=== PATIENT | male | born 1950 | race Caucasian/White ===

== ENCOUNTER 2016-04-16 18:42 | Inpatient (IN) | payer MEDICARE ==
[~2016-04-16] VITALS: Ht 179.1 cm; Wt 79.0 kg
[~2016-04-16 18:42] MED LIST: ALEV220C2 PO; ASPI325T PO; GLUC1CAP9 PO; PRAV40TA PO; TYLE325T5 PO; [UNRECOGNIZED DRUG - CODE] PO
[2016-04-16 19:52] LABS: BASO % 0.5 % (0.0-1.0); EOS # 0.2 K/mm3 (0.0-0.50); EOS % 4.2 % (0.0-3.0); LARGE UNSTAINED CELL # 0.2 K/mm3 (0.0-0.4); LARGE UNSTAINED CELL % 2.9 % (0.0-4.0); LYMPH % 16.1 % (24.0-44.0); MEAN CORPUSCULAR HEMOGLOBIN 32.2 pg (27.0-33.0); MEAN CORPUSCULAR HGB CONC 34.2 g/dl (32.0-36.5); MEAN CORPUSCULAR VOLUME 94.2 fl (80.0-96.0); MONO # 0.4 K/mm3 (0.0-0.8); MONO % 6.5 % (0.0-5.0); NEUTROPHILS # 4.1 K/mm3 (1.8-7.7); NEUTROPHILS % 69.9 % (36.0-66.0); PLATELET COUNT, AUTOMATED 159 k/mm3 (150-450); RED CELL DISTRIBUTION WIDTH 11.8 % (11.5-14.5); WHITE BLOOD COUNT 5.9 K/mm3 (4.0-10.0)
[2016-04-16 20:08] LABS: ALBUMIN 4.2 GM/DL (3.2-5.2); ALKALINE PHOSPHATASE 81 U/L (45-117); ANION GAP 11 MEQ/L (8-16); AST/SGOT 37 U/L (15-37); BILIRUBIN,DIRECT 0.2 MG/DL (0.0-0.2); BILIRUBIN,TOTAL 0.6 MG/DL (0.2-1.0); CALCIUM LEVEL 8.8 MG/DL (8.8-10.2); CARBON DIOXIDE LEVEL 24 MEQ/L (21-32); CHLORIDE LEVEL 108 MEQ/L (98-107); CREATININE FOR GFR 0.98 MG/DL (0.70-1.30); GLOMERULAR FILTRATION RATE > 60.0 (>49); GLUCOSE, FASTING 92 MG/DL (80-110); POTASSIUM SERUM 3.9 MEQ/L (3.5-5.1); SODIUM LEVEL 143 MEQ/L (136-145); TOTAL PROTEIN 7.2 GM/DL (6.4-8.2)
[2016-04-16 20:17] LABS: VENOUS BASE EXCESS 0.5 (-2.0-2.0); VENOUS O2 SATURATION 98.4 % (60.0-80.0); VENOUS PARTIAL PRESSURE CO2 35.6 mmHg (38.0-50.0); VENOUS PARTIAL PRESSURE O2 109.1 mmHg (30.0-50.0); VENOUS TOTAL CO2 25.2 MEQ/L (24.0-28.0)
[2016-04-16 20:20] LABS: ALT/SGPT 38 U/L (12-78); BLOOD UREA NITROGEN 31 MG/DL (7-18)
--- NOTE | 2016-04-16 21:30 | REPUSA ---
CLINICAL HISTORY: AMS TECHNIQUE: Multiple axial CT images were obtained through the brain without IV contrast material. COMMENTS: There is normal configuration of sella turcica. There are no intra or extra-axial collections. There is no mass effect or midline shift. There is no evidence of hematoma formation. No hydrocephalus is p resent. The ventricles are symmetrical. No abnormal calcifications are present. Left cerebellar hypodensity is noted compatible with an old infarct. There is diffuse age-appropriate cerebellar and cerebral atrophy with proportionally dilated ventricl es and cortical sulci. There are bilateral periventricular and subcortical white matter hypolucencies compatible with mild c hronic microvascular disease. Otherwise, no significant focal abnormalities are seen either in the posterior fossa or supratentoria l compartment. IMPRESSION: 1. Age-appropriate cerebellar and cerebral atrophy. 2. Mild chronic microvascular disease. 3. Left cerebellar hypodensity is noted compatible with an old infarct. 4. No evidence of acute intracranial pathology. Thank you for your kind referral of this patient.
[2016-04-17 00:09] LABS: METHADONE URINE NEGATIVE (NEGATIVE)
--- NOTE | 2016-04-17 02:30 | REPUSA ---
CLINICAL HISTORY: Amnesia. TECHNIQUE: Three dimensional [id number] angiography is performed of the [place]. The eulogio dy was performed without IV contrast agent. FINDINGS: The supraclinoid portions of the internal carotid arteries are of normal shape. The normal bifurcation is seen. The middle cerebral arteries are unremarkable in appearance. The posterior circu lation is visualized and shows no evidence of occlusion or aneurysm formation. The basilar tip is see n and shows no aneurysm formation. There is no evidence of beading to suggest vasculitis. IMPRESSION: MRA of the [place] is within normal limits. Thank you for your kind referral of this patient.
--- NOTE | 2016-04-17 02:30 | REPUSA ---
CLINICAL HISTORY: Confusion. Amnesia. TECHNIQUE: MRI of the brain was performed without administration of intravenous contrast material. T1 spine echo, T2 fast spin echo and FLAIR sequences were obtained in sagittal, axial and coronal plane s. FINDINGS: 3.2 cm left cerebellar chronic encephalomalacia. The sella and parasellar regions are unremarkable in appearance. The corpus callosum and cerebellar t onsils are of normal configuration and position. There are no intra or extra-axial collections. There is no mass effect or midline shift. There is no evidence of hematoma formation. There is no hydrocep halus. The brain stem shows no mass effects, infarcts or hemorrhage. There are no cerebellopontine tumors. T he acoustic nerves are symmetrical. No cerebellar intra-axial pathology delineated. The fourth ventri charlie and aqueduct are normal. No abnormalities of the optic nerves are identified. No dural or subdura l masses or collections are detected. The visualized arterial structures demonstrate normal appearing flow voids. The VII and VIII nerve bu ndles are visualized and are unremarkable in appearance. There are no suspicious signal abnormalities within the infra or supratentorial space. IMPRESSION: Left cerebellar chronic encephalomalacia. No acute intracranial pathology. Thank you for your kind referral of this patient.
[2016-04-17] MEDS ORDERED: NS 1,000 ML IV SCH (03:10)
[2016-04-17 04:15] VITALS: BP 105/64
--- NOTE | 2016-04-17 04:27 | HPE ---
DATE OF ADMISSION: 04/17/2016 PRIMARY CARE PROVIDER: Ira Graham PA-C. CHIEF COMPLAINT: Amnesia. 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 Apparently in the afternoon he got confused and he was told that he began asking the same questions over and over again. He actually drove his young coworker home, paid him and came to his house and was confused and at which point it was advised he present to the emergency room. At the present time, the patient himself does not remember anything other than sharpening the fence posts. He does not remember the events of the afternoon. He is fully awake, alert and oriented times three at the present time and remembers the earlier part of his emergency room stay. He denies any history of seizures, any seizure-like activity. No other episodes of loss of consciousness or memory lapses or loss of time in the past. No illicit substance abuse. He admits that he was working quite vigorously this morning and he has not been working vigorously lately as he has been caring for his , who is quite ill with dementia. He tells me that she was in [facility] and he was staying in a hotel there for the last several weeks and only came back home a few days ago and he has not slept much in the last month. PAST MEDICAL HISTORY: 1. CVA. 2. Obstructive sleep apnea. ALLERGIES: Patient has no known drug allergies. HOME MEDICATIONS: - aspirin 325 mg daily - pravastatin 40 mg daily PAST SURGICAL HISTORY: Ureteral stent placement. 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 No illicit substance abuse, alcohol or tobacco abuse. FAMILY HISTORY: Noncontributory. REVIEW OF SYSTEMS: Negative other than history of present illness (HPI). PHYSICAL EXAMINATION: VITAL SIGNS: Temperature 86, pulse 72, respiratory rate 18, blood pressure 115/67, oxygen saturation 93% on room air. GENERAL: He is a very pleasant, elderly, fit man sitting on the edge of the stretcher. He does not appear to be in any acute distress. HEENT: Cranial nerves II-XII are grossly intact. He has moist mucous membranes. No elevation of central venous pressure (CVP). CARDIOVASCULAR EXAMINATION: S1, S2, regular. RESPIRATORY EXAMINATION: Clear. ABDOMINAL EXAMINATION: Benign. EXTREMITIES: No clubbing, cyanosis or edema. He has 5/5 strength in all four extremities. NEUROLOGICAL EXAMINATION: Nonfocal. LABORATORY STUDIES: WBC 5.9, hemoglobin 14.1, hematocrit 41.3, platelet count 159. Chemistry panel: Sodium 143, potassium 3.9, chloride 108, bicarbonate 24, BUN 31, creatinine 0.9. CK is elevated at 948. Troponin is negative. TSH within normal limits. Lactic acid was within normal limits as were liver function tests. Toxicology is negative. Urinalysis is essentially unremarkable. IMAGING: The patient had MRI of the brain that reveals old cerebellar findings, no acute findings. An MRA, which is essentially unremarkable. A CT scan of the head, which reveals left cerebellar hypodensity compatible with infarct, no acute infarct. Chest x-ray, for which there is no report available at this time. ASSESSMENT AND PLAN: This is a 66-year-old man with transient global amnesia. 1. Transient global amnesia, nearly classic, loss of time, lessening of power, associated with strenuous activity, life stressors. At the present time, it does appear to be resolving. Will admit him to the medical/surgical floor with neurological checks every 4 hours and close monitoring. Will order him for an electroencephalogram (EEG). Could consider neurology consultation. At the present time, he has no meningeal signs, no concerning signs for encephalitis or seizure-like activity. Reassurance has been offered. 2. History of CVA. The patient is on aspirin and pravastatin. 3. Elevated CK and elevated BUN. The patient is mildly dehydrated likely related to strenuous activity and his poor sleep and life stressors. We will gently hydrate him and trend his CK in the morning. 4. Obstructive sleep apnea. The patient is noncompliant with continuous positive airway pressure (CPAP). 5. Deep venous thrombosis (DVT) prophylaxis. The patient will be on Lovenox. DISPOSITION: The patient is admitted to the medical/surgical floor to Dr. Cade's service who will continue following the patient at 7 a.m.
[2016-04-17 06:00] VITALS: BP 115/65
--- NOTE | 2016-04-17 08:11 | REP ---
REASON: Altered mental status. COMPARISON: 03/01/2012 FINDINGS: The technique utilized in obtaining the radiograph has magnified the cardiac silhouette and accentuated the interstitial markings. The superior mediastinal structures are midline. The cardiac silhouette is unremarkable in size, shape, and position. The diaphragmatic surfaces of the lungs are regular, and the costophrenic angles are clear. The pulmonary espinal are clear. The imaged osseous structures are intact. IMPRESSION: There is no acute cardiopulmonary disease. No significant change from the prior exam other than technique. Calcified hilar lymph nodes are again seen on the right, status quo. Signed by Manuel Weaver DO 04/17/2016 10:04 A
--- NOTE | 2016-04-17 09:09 | ECGEPIP ---
Stationary ECG Study [facility] - ED Test Date: 2016-04-16 Pat Name: TREY OWEN Department: Room: [place] [address] Gender: M Academic Counselor: [email or web address] : 1950 Requested By: ALICIA Childs Order Number: [id number] Reading MD: Bre Conway Measurements Intervals Sharon Rate: 58 P: 54 VT: 173 QRS: -19 QRSD: 100 T: -2 QT: 401 QTc: 394 Interpretive Statements SINUS BRADYCARDIA MINIMAL VOLTAGE CRITERIA FOR LVH, CONSIDER NORMAL VARIANT INFERIOR MYOCARDIAL INFARCTION, PROBABLY OLD LESS ECTOPY COMPARED 08/15/14 Electronically Signed On 04-17-2016 9:08:42 EST by Bre Conway
[2016-04-17] MEDS: ENOXAPARIN 40 MG/0.4 ML SYRINGE (J1650) SC SCH (09:23)
[2016-04-17] MEDS: PRAVASTATIN 20 MG TAB PO SCH (09:23)
[2016-04-17] MEDS: ASPIRIN 325 MG TAB PO SCH (09:23)
[2016-04-17 12:14] LABS: MEAN CORPUSCULAR HEMOGLOBIN 32.9 pg (27.0-33.0); MEAN CORPUSCULAR HGB CONC 34.4 g/dl (32.0-36.5); MEAN CORPUSCULAR VOLUME 95.5 fl (80.0-96.0); WHITE BLOOD COUNT 3.8 K/mm3 (4.0-10.0)
[2016-04-17 12:35] LABS: ANION GAP 9 MEQ/L (8-16); BLOOD UREA NITROGEN 24 MG/DL (7-18); CALCIUM LEVEL 8.1 MG/DL (8.8-10.2); CARBON DIOXIDE LEVEL 27 MEQ/L (21-32); CHLORIDE LEVEL 110 MEQ/L (98-107); CREATININE FOR GFR 0.84 MG/DL (0.70-1.30); GLOMERULAR FILTRATION RATE > 60.0 (>49); GLUCOSE, FASTING 116 MG/DL (80-110); POTASSIUM SERUM 4.1 MEQ/L (3.5-5.1); SODIUM LEVEL 146 MEQ/L (136-145)
[2016-04-17 14:00] VITALS: BP 129/67
[2016-04-17 22:00] VITALS: BP 120/74
[2016-04-18 06:00] VITALS: BP 139/82
--- NOTE | 2016-04-18 09:46 | REP ---
REASON: Carotid arterial disease. COMPARISON: 08/15/2014 which showed bilateral 1 to 15% stenosis. Today's examination again shows mild to moderate echogenic material along the carotid arterial nash in a fashion unchanged from the prior exam. Analysis of the spectral waveforms shows no evidence of significant spectral broadening. RIGHT LEFT CCA systolic 92.9 cm/s 96.1 cm/s CCA diastolic 23.7 cm/s 20.4 cm/s ICA systolic 83.4 cm/s 61.9 cm/s ICA diastolic 31.5 cm/s 21.6 cm/s ICA/CCA ratio 0.9 0.64 Antegrade flow is seen at both vertebral arteries. IMPRESSION: According to the NASCET consensus criteria, there is no evidence of a flow significant stenosis. There does not appear to be a significant change compared to the prior examination. Signed by Manuel Weaver DO 04/18/2016 10:28 A
[2016-04-18] MEDS: PRAVASTATIN 20 MG TAB PO SCH (10:27)
[2016-04-18] MEDS: ASPIRIN 325 MG TAB PO SCH (10:27)
[2016-04-18] MEDS: ENOXAPARIN 40 MG/0.4 ML SYRINGE (J1650) SC SCH (10:28)
--- NOTE | 2016-04-18 13:27 | IPN ---
DATE: 04/17/2016 SUBJECTIVE: The patient feels well at this time. 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 It does seem to represent a new observation on his part that he is a little bit weak. He denies nausea, headache, tremulousness, change in appetite. He has been eating and drinking overnight well. He has been receiving IV fluids at just above minimal hydration support, but he seems to be eating and drinking well enough that he no longer requires this IV support. The patient feels well and he notes no residual problems other than the left hand weakness, senior automation engineer weakness, which he thinks is a new problem. He denies headache, nausea, tremor, or any other active new symptom other than awareness that his left hand is a little weak. He also believes that his left eye is a little puffy under the left eye. He does have a history of a fractured orbit many years ago, which could be a cause for some asymmetry, but he and his [id number], who is with him today, are confident that the puffiness under his left eye is news, but he denies any eye irritability symptoms or foreign body sensation or light sensitivity and the area is not tender to touch. PHYSICAL EXAMINATION: He is alert, pleasant, cooperative, oriented. He has 4/5 strength in the left senior automation engineer. His biceps power and triceps power seem to be normal, comparable to the opposite side. Facial asymmetry is not noted. Tongue movements are normal and his speech is clear. Lower extremity strength is normal and he is able to demonstrate functionally normal Romberg at the bedside today. Patient is alert and pleasant and able to move all extremities well. His left senior automation engineer is indeed weak, approximately 4/5 strength. Focal weakness demonstrated. Facial movements are normal. He is able to demonstrate stable Romberg. Lower extremity strength is normal. He has had no evidence of repeat symptoms. Vital signs this morning: Blood pressure 115/65, pulse 70, respiratory rate 20, temperature 95.6, oxygen saturation overnight has varied from 89-92 on room air. MRA showed old cerebellar injury, encephalomalacia. MRI of the brain showed previous evidence of cerebellar injury, 3.2 cm area of left cerebellar encephalomalacia, nothing demonstrated abnormal in the higher structures. The patient does have a field cut involving the left temporal field. This apparently is old since a previous stroke for which he had seen Dr. Salas. He continues on his usual medications, which include pravastatin and aspirin. ASSESSMENT: 1. Transient global amnesia. Differential includes possible seizure activity, new stroke less likely. Note that his CK was elevated at 948 and this will be rechecked. PLAN: We will continue current medications. We will discontinue IV support. Ask physical therapy (PT) to seem him to ensure his safety in movement and stability. Consult Dr. Jimenez has been requested. EEG has been requested to look for evidence of seizure activity.
--- NOTE | 2016-04-19 09:39 | CR ---
DATE OF CONSULTATION: 04/17/2016 REFERRING PHYSICIAN: Dr. Cade HISTORY: The patient is a 66-year-old male who was admitted to the hospital yesterday secondary to an episode of confusion. 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 According to the history, he did have help from a young coworker to do the work. In the afternoon at about 4:30 p.m., he was noted to be confused. He started asking the same question over and over to his coworker. He however did not lose consciousness and did not complain of any other symptoms. He apparently drove his young coworker to his home and paid him there. He then returned back home. At home, he was noted to be confused once again. He however did not have any other symptoms. The first thing that the patient remembers is being at the emergency room here at the [facility] at about 7:30 p.m. His symptoms started around 4:30 p.m. He does not know anything as to what happened during that period of time. He had a CT scan and apparently MRI of the brain which did not show any acute changes. Since then, he is now back to baseline. He denies any headache, dizzy spells, vertigo, diplopia, blurred vision, dysarthria and dysphagia. He does have some weakness on the left side of his body. holding it in his left hand. His CPK is also elevated at 948, but his white cell count is normal. He was on aspirin at home. PAST MEDICAL HISTORY: 1. CVA. 2. Obstructive sleep apnea syndrome. FAMILY HISTORY: The patient's mother and father are both . PERSONAL AND SOCIAL HISTORY: The patient lives with his on a farm. She has known history of dementia. There is no past medical history of smoking or alcohol and drug abuse. REVIEW OF SYSTEMS: All other systems were reviewed and found to be noncontributory. PHYSICAL EXAMINATION: On examination, the patient does not appear in any discomfort. He is pleasant to interact with. His posture is normal. His blood pressure is 120/70. Pulse is 72 per minute. Respirations are 18 per minute. He is 5 feet 10 inches tall. He weighs about 80 kg. His neck is supple. There is no carotid bruit audible. He does not have any tenderness in his cervical spine or shoulder muscles. His ear, nose and throat examination is normal. Lungs are clear to auscultation. His heart is regular in rhythm. His abdomen is soft and nondistended. There is no ankle edema seen. The peripheral pulses are normally palpable. He is oriented to time and place. His speech is fluent. Extraocular movements are intact. There is no horizontal or vertical nystagmus seen. His pupils are about 3 mm in size and reactive to light. The consensual light reflex is present bilaterally. Visual espinal appear to be within normal limits. His face is symmetrical. His tongue is midline. His motor examination does show mild weakness in his left arm. There are no resting or postural tremors of the hands seen. His muscle tone is normal. The sensation to fine touch and pinprick is equal on both sides of the body. Deep tendon reflexes are 2+ and symmetrical with downgoing plantar reflexes. His gait is not tested. DIAGNOSTIC STUDIES: The patient's MRI study of the brain which was performed yesterday did show an old cerebellar infarct. The MRA of the brain was reported to be normal. His CBC showed a white cell count of 5900, hemoglobin 14.1, hematocrit 41.3 and platelets 159,000. His sodium was noted to be 143, potassium 3.9, BUN 31 and creatinine 0.98. His calcium level is 8.8. His ammonia level is 26. His CPK was elevated at 948. ASSESSMENT: 1. Episode of altered mental status. 2. Probable transient global amnesia. 3. Rule out partial seizures, although less likely. 4. 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 PLAN: 1. ESR, JB, rheumatoid factor and lupus anticoagulation. 2. Aspirin 325 mg by mouth daily. 3. EEG study. 4. Carotid duplex study. 5. Hold off seizure medications for now as seizure activity appears to be less likely. 6. I have strongly urged the patient to avoid any strenuous physical activity which may be a trigger point for his current spell. Thank you very much for this consultation.
--- NOTE | 2016-04-19 16:33 | DSES ---
DATE OF ADMISSION: 04/17/2016 DATE OF DISCHARGE: 04/18/2016 REASON FOR ADMISSION: Mr. Fuller is a 66-year-old male who has a past history of a cerebrovascular accident (CVA) which left him with only a visual field cut involving left temporal field. 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 Not quite as vigorously engaged in his usual work as a result of caring for his who had been ill. 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 By the time he arrived this syndrome and essentially resolved and he was doing well at that time. He was proceeded. The CT showed a left cerebellar hypodensity compatible with an old injury. IMAGING STUDIES: Imaging studies during his hospital stay included vascular ultrasound of the carotids which showed no evidence of significant stenosis, perhaps 1-15% bilateral narrowings. He was on aspirin at the time of admission and will remain so. MRI showed 3.2 cm left cerebellar chronic encephalomalacia and no other abnormalities. That lesion is old. MRA of the brain showed no significant narrowings and no evidence of vasculitis. Chest x-ray Showed no cardiopulmonary diseases, no acute changes from previous images. LABORATORY DATA: Hemoglobin was 14.1 on admission 13.6 at discharge, platelet count 159,000 on admission 145,000 at discharge sodium 143 on admission, 146 on discharge. BUN 31 on admission 424 at discharge, creatinine 0.84 at discharge. Fasting glucose 90. A random glucose 92 on admission 116 on discharge, CPK was elevated at 948 and was 539 the following early and about and about an hour later for some reason his checked again was 531. CPK-MB was negative and troponin was also not elevated. TSH was normal at 2.44. Carboxyhemoglobin was checked on admission and was 2.7 slightly higher than expected for a nonsmoker. Ethyl alcohol and drug screen was negative. The patient was seen in consultation by Dr. Jimenez who agreed that transient global amnesia versus partial complex seizure the best differential. He will be set up for EEG to be done after discharge. At this time he has no residual neurologic deficit. 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 He is ambulating unimpaired and his back to baseline and his mental status is normal with normal function of memory. He does have a memory gap for the approximately 3 hours from the onset of the symptom until after the syndrome cleared after coming to emergency department (ED). DISCHARGE DIAGNOSIS: Transient global amnesia possible partial complex seizures, history of stroke, hypercholesterolemia. PLAN: Discharged on aspirin 325 daily. Continue pravastatin [address] Jimenez tomorrow to arrange outpatient EEG. No operating of dangerous machinery including automobiles until specifically cleared for safe operation by Dr. Jimenez. Followup will be per routine scheduled visit with his primary care provider and a message was sent to the primary care provider within [employer] [facility] messaging system to alert the provider regarding the patient's admission.
== END 2016-04-18 14:13 | disposition home or self-care (01) | DRG 72 ==
LOC: M ED 20:19 → M ED INP 04-17 03:10 → M MS5PR 04-17 04:15
PROVIDERS: ADMIT Internal Medicine; ATTEND Family Medicine
DX: G45.4 Transient global amnesia (principal); R56.9 Unspecified convulsions; G47.33 Obstructive sleep apnea (adult) (pediatric); E86.0 Dehydration; E78.00 Pure hypercholesterolemia, unspecified; Z86.73 Personal history of transient ischemic attack (TIA), and cerebral infarction without residual deficits; Z79.82 Long term (current) use of aspirin; Z79.899 Other long term (current) drug therapy; Z91.19 Patient's noncompliance with other medical treatment and regimen

== ENCOUNTER → 2016-06-24 | Outpatient (CLI) | payer MEDICARE ==
--- NOTE | 2016-06-24 10:05 | REP ---
Clinical: Pain with recent trauma. Technique: AP, lateral, bilateral oblique views of the left foot. Findings: With the given history of trauma to the fifth toe, there is evidence for a nondisplaced subacute fracture involving the proximal phalanx now demonstrating callus formation and periosteal reaction. Overlying soft tissue swelling is noted. Remainder examination demonstrates age-related arthritic degenerative changes primarily involving the tarsometatarsal joints and first toe. Impression: Evidence for healing, nondisplaced subacute fracture of the fifth toe proximal phalanx consistent with the patient's history. Underlying osteoarthritic degenerative changes. Signed by Geo Augustin MD 06/24/2016 09:57 A
== END ==
LOC: M ADAMS 09:28
PROVIDERS: ATTEND Physician Assistant
DX: M19.072 Primary osteoarthritis, left ankle and foot (principal)

== ENCOUNTER → 2016-08-06 | Outpatient (REF) | payer MEDICARE ==
[2016-08-06 12:55] LABS: BASO % 0.5 % (0.0-1.0); EOS # 0.3 K/mm3 (0.0-0.50); EOS % 4.8 % (0.0-3.0); LARGE UNSTAINED CELL # 0.2 K/mm3 (0.0-0.4); LARGE UNSTAINED CELL % 2.2 % (0.0-4.0); LYMPH # 0.9 K/mm3 (1.5-4.5); LYMPH % 12.7 % (24.0-44.0); MEAN CORPUSCULAR HEMOGLOBIN 32.6 pg (27.0-33.0); MEAN CORPUSCULAR HGB CONC 33.6 g/dl (32.0-36.5); MEAN CORPUSCULAR VOLUME 96.8 fl (80.0-96.0); MONO # 0.4 K/mm3 (0.0-0.8); MONO % 5.7 % (0.0-5.0); NEUTROPHILS % 74.2 % (36.0-66.0); PLATELET COUNT, AUTOMATED 163 k/mm3 (150-450); RED CELL DISTRIBUTION WIDTH 11.8 % (11.5-14.5); WHITE BLOOD COUNT 6.7 K/mm3 (4.0-10.0)
[2016-08-06 13:47] LABS: ALBUMIN 3.7 GM/DL (3.2-5.2); ALBUMIN/GLOBULIN RATIO 1.19 (1.00-1.93); ALKALINE PHOSPHATASE 72 U/L (45-117); ALT/SGPT 39 U/L (12-78); ANION GAP 7 MEQ/L (8-16); AST/SGOT 19 U/L (15-37); BILIRUBIN,TOTAL 0.5 MG/DL (0.2-1.0); BLOOD UREA NITROGEN 24 MG/DL (7-18); CALCIUM LEVEL 8.7 MG/DL (8.8-10.2); CARBON DIOXIDE LEVEL 27 MEQ/L (21-32); CHLORIDE LEVEL 110 MEQ/L (98-107); CREATININE FOR GFR 0.74 MG/DL (0.70-1.30); GLOMERULAR FILTRATION RATE > 60.0 (>49); GLUCOSE, FASTING 78 MG/DL (80-110); POTASSIUM SERUM 4.6 MEQ/L (3.5-5.1); SODIUM LEVEL 144 MEQ/L (136-145); TOTAL PROTEIN 6.8 GM/DL (6.4-8.2)
== END ==
LOC: M SFHCADAM 10:58
PROVIDERS: ATTEND Physician Assistant
DX: D75.89 Other specified diseases of blood and blood-forming organs (principal); R74.8 Abnormal levels of other serum enzymes; Z86.73 Personal history of transient ischemic attack (TIA), and cerebral infarction without residual deficits; Z12.5 Encounter for screening for malignant neoplasm of prostate
CPT/HCPCS: 80053; 82550; 85025; G0103

== ENCOUNTER → 2016-08-13 | Outpatient (CLI) | payer MEDICARE ==
--- NOTE | 2016-08-13 12:28 | REP ---
Clinical: Chronic pain. Technique: Internal rotation, external rotation, and Y view of the left shoulder. Findings: Cortical irregularity and degenerative changes at the acromioclavicular joint are appreciated along with subtle increased sclerosis and heterogeneity to the acetabular rim and lateral contour of the humeral head. No acute fracture dislocation. The small spur versus loose body is identified inferior to the acetabular rim. Subacromial space is normal. Impression: Mild arthritic degenerative changes. Signed by Geo Augustin MD 08/13/2016 12:19 P
== END ==
LOC: M ADAMS 10:56
PROVIDERS: ATTEND Physician Assistant
DX: G89.29 Other chronic pain (principal)

== ENCOUNTER → 2019-01-09 | Outpatient (REF) | payer MEDICARE ==
[~2019-01-09] MED LIST changes: +ASPI-1 PO; -ASPI325T PO
[2019-01-09 17:19] LABS: HEMATOCRIT 43.3 % (42.0-52.0); HEMOGLOBIN 14.3 g/dl (13.5-17.5); MEAN CORPUSCULAR HEMOGLOBIN 32.5 pg (27.0-33.0); MEAN CORPUSCULAR VOLUME 98.4 fl (80.0-96.0); PLATELET COUNT, AUTOMATED 164 10^3/uL (150-450)
[2019-01-09 17:49] LABS: ALBUMIN 3.7 GM/DL (3.2-5.2); ALT/SGPT 36 U/L (12-78); BILIRUBIN,TOTAL 0.5 MG/DL (0.2-1.0); BLOOD UREA NITROGEN 24 MG/DL (7-18); CALCIUM LEVEL 8.7 MG/DL (8.8-10.2); CARBON DIOXIDE LEVEL 27 MEQ/L (21-32); CHLORIDE LEVEL 107 MEQ/L (98-107); CHOLESTEROL LEVEL 156 MG/DL (<200); CHOLESTEROL RISK RATIO 2.516 (<5); CREATININE FOR GFR 1.19 MG/DL (0.70-1.30); FREE T4 0.96 NG/DL (0.76-1.46); GLOMERULAR FILTRATION RATE > 60.0 (>49); GLUCOSE, FASTING 74 MG/DL (70-100); HDL CHOLESTEROL 62 MG/DL (>40); LDL CHOLESTEROL 68 MG/DL (<100); NON-HDL-C 94 MG/DL; POTASSIUM SERUM 4.6 MEQ/L (3.5-5.1); SODIUM LEVEL 142 MEQ/L (136-145); TOTAL PROTEIN 6.7 GM/DL (6.4-8.2); TRIGLYCERIDES LEVEL 130 MG/DL (<150)
[2019-01-09 17:59] LABS: APPEARANCE, URINE CLEAR (CLEAR); BACTERIA, URINE AUTO NEGATIVE (NEGATIVE); BILIRUBIN, URINE AUTO NEGATIVE (NEGATIVE); BLOOD, URINE BLOOD NEGATIVE (NEGATIVE); COLOR, URINE YELLOW (YELLOW); GLUCOSE, URINE (UA) AUTO NEGATIVE (NEGATIVE); KETONE, URINE AUTO NEGATIVE (NEGATIVE); LEUKOCYTE ESTERASE, URINE AUTO NEGATIVE (NEGATIVE); MUCUS, URINE SMALL (NEGATIVE); NITRITE, URINE AUTO NEGATIVE (NEGATIVE); PROTEIN, URINE AUTO NEGATIVE (NEGATIVE); RBC, URINE AUTO 0 /HPF (0-3); SQUAMOUS EPITHELIAL CELL UR AU 0 /HPF (0-6); UROBILINOGEN, URINE AUTO 0.2 mg/dL (0.0-2.0); WBC, URINE AUTO 1 /HPF (0-3)
== END ==
LOC: M SFHCADAM 14:13
PROVIDERS: ATTEND Physician Assistant
DX: E78.5 Hyperlipidemia, unspecified (principal); G47.33 Obstructive sleep apnea (adult) (pediatric); Z86.73 Personal history of transient ischemic attack (TIA), and cerebral infarction without residual deficits; Z12.5 Encounter for screening for malignant neoplasm of prostate; R35.0 Frequency of micturition
CPT/HCPCS: 80053; 80061; 81001; 84439; 84443; 85027; 87086; G0103; G0463

== ENCOUNTER → 2019-02-02 | Outpatient (REF) | payer MEDICARE | LOC: M LAB LCGH 17:39 | PROVIDERS: ATTEND Physician Assistant | DX: C44.42 Squamous cell carcinoma of skin of scalp and neck (principal) ==

== ENCOUNTER → 2020-02-21 | Outpatient (REF) | payer MEDICARE ==
[~2020-02-21] MED LIST changes: +PRAV40TA2 PO; +TAMS1CAP17 PO
[2020-02-21 13:18] LABS: HEMATOCRIT 44.7 % (42.0-52.0); HEMOGLOBIN 14.6 g/dl (13.5-17.5); MEAN CORPUSCULAR HEMOGLOBIN 31.8 pg (27.0-33.0); MEAN CORPUSCULAR HGB CONC 32.7 g/dl (32.0-36.5); MEAN CORPUSCULAR VOLUME 97.4 fl (80.0-96.0); PLATELET COUNT, AUTOMATED 161 10^3/uL (150-450); RED BLOOD COUNT 4.59 10^6/uL (4.30-6.10); WHITE BLOOD COUNT 4.7 10^3/uL (4.0-10.0)
[2020-02-21 13:19] LABS: APPEARANCE, URINE CLEAR (CLEAR); BACTERIA, URINE AUTO NEGATIVE (NEGATIVE); BILIRUBIN, URINE AUTO NEGATIVE (NEGATIVE); BLOOD, URINE BLOOD NEGATIVE (NEGATIVE); COLOR, URINE YELLOW (YELLOW); GLUCOSE, URINE (UA) AUTO NEGATIVE (NEGATIVE); KETONE, URINE AUTO NEGATIVE (NEGATIVE); LEUKOCYTE ESTERASE, URINE AUTO TRACE (NEGATIVE); MUCUS, URINE SMALL (NEGATIVE); NITRITE, URINE AUTO NEGATIVE (NEGATIVE); PROTEIN, URINE AUTO NEGATIVE (NEGATIVE); RBC, URINE AUTO 0 /HPF (0-3); SPECIFIC GRAVITY URINE AUTO 1.017 (1.002-1.035); SQUAMOUS EPITHELIAL CELL UR AU 0 /HPF (0-6); UROBILINOGEN, URINE AUTO 0.2 mg/dL (0.0-2.0); WBC, URINE AUTO 2 /HPF (0-3)
[2020-02-21 13:49] LABS: ALT/SGPT 33 U/L (12-78); BILIRUBIN,TOTAL 0.7 MG/DL (0.2-1.0); BLOOD UREA NITROGEN 24 MG/DL (7-18); CALCIUM LEVEL 8.8 MG/DL (8.8-10.2); CARBON DIOXIDE LEVEL 29 MEQ/L (21-32); CHLORIDE LEVEL 109 MEQ/L (98-107); CHOLESTEROL LEVEL 140 MG/DL (<200); CHOLESTEROL RISK RATIO 2.028 (<5); CREATININE FOR GFR 0.84 MG/DL (0.70-1.30); GLOMERULAR FILTRATION RATE > 60.0 (>42); GLUCOSE, FASTING 94 MG/DL (70-100); HDL CHOLESTEROL 69 MG/DL (>40); LDL CHOLESTEROL 61 MG/DL (<100); NON-HDL-C 71 MG/DL; POTASSIUM SERUM 4.4 MEQ/L (3.5-5.1); SODIUM LEVEL 142 MEQ/L (136-145); TOTAL PROTEIN 6.8 GM/DL (6.4-8.2); TRIGLYCERIDES LEVEL 48 MG/DL (<150)
[2020-02-21 13:54] LABS: FOLATE 10.4 NG/ML; VITAMIN B12 LEVEL 675 PG/ML
== END ==
LOC: M SFHCADAM 08:01
PROVIDERS: ATTEND Physician Assistant
DX: N40.1 Benign prostatic hyperplasia with lower urinary tract symptoms (principal); E78.5 Hyperlipidemia, unspecified; Z12.5 Encounter for screening for malignant neoplasm of prostate
CPT/HCPCS: 80053; 80061; 81001; 82607; 82746; 85027; 87086; G0103; G0463

== ENCOUNTER → 2020-03-29 | Outpatient (CLI) | payer MEDICARE | LOC: M LABSMTC 10:08 | PROVIDERS: ATTEND Anesthesiology | DX: Z01.812 Encounter for preprocedural laboratory examination (principal); Z20.822 Contact with and (suspected) exposure to COVID-19 ==

== ENCOUNTER 2020-04-03 09:34 | Day surgery (SDC) | payer MEDICARE ==
[~2020-04-03] VITALS: Ht 177.8 cm; Wt 82.1 kg
[~2020-04-03 09:34] MED LIST changes: +NS 1,000 ML IV ONE
[2020-04-03] MEDS ORDERED: LIDOCAINE 2% 100MG/5ML SDV (FOR ANES.) As Ordered ONE (09:49)
[2020-04-03] MEDS ORDERED: propofoL 200 MG/20 ML VIAL As Ordered ONE (09:49)
--- NOTE | 2020-04-03 11:04 | ROOR ---
Patient Name: López Fuller Procedure Date: 04/03/2020 10:39 AM Date of : 1950 Age: 70 Room: [facility] Gender: Male Note Status: Finalized Procedure: Colonoscopy Indications: High risk colon cancer surveillance: Personal history of colonic polyps Providers: Matthew Abraham Jr, MD Referring MD: Luís Graham MD Requesting Provider: Medicines: Propofol per Anesthesia Complications: No immediate complications. Procedure: Pre-Anesthesia Assessment: - Prior to the procedure, a History and Physical was performed, and patient medications and allergies were reviewed. The patient is competent. The risks and benefits of the procedure and the sedation options and risks were discussed with the patient. All questions were answered and informed consent was obtained. Patient identification and proposed procedure were verified by the physician and the nurse in the pre-procedure area and in the procedure room. Mental Status Examination: alert and oriented. Airway Examination: normal oropharyngeal airway and neck mobility. Respiratory Examination: clear to auscultation. CV Examination: normal. ASA Grade Assessment: II - A patient with mild systemic disease. After reviewing the risks and benefits, the patient was deemed in satisfactory condition to undergo the procedure. The anesthesia plan was to use moderate sedation / analgesia (conscious sedation). Immediately prior to administration of medications, the patient was re-assessed for adequacy to receive sedatives. The heart rate, respiratory rate, oxygen saturations, blood pressure, adequacy of pulmonary ventilation, and response to care were monitored throughout the procedure. The physical status of the patient was re-assessed after the procedure. The Colonoscope was introduced through the anus and advanced to the cecum, identified by appendiceal orifice and ileocecal valve. The colonoscopy was performed without difficulty. The patient tolerated the procedure well. The quality of the bowel preparation was adequate. Findings: The rectum, recto-sigmoid colon, descending colon, transverse colon, ascending colon, cecum, appendiceal orifice and ileocecal valve appeared normal. Multiple small and large-mouthed diverticula were found in the sigmoid colon. Non-bleeding external and internal hemorrhoids were found during endoscopy. The hemorrhoids were Grade II (internal hemorrhoids that prolapse but reduce spontaneously) and Grade III (internal hemorrhoids that prolapse but require manual reduction). Impression: - The rectum, recto-sigmoid colon, descending colon, transverse colon, ascending colon, cecum, appendiceal orifice and ileocecal valve are normal. - Diverticulosis in the sigmoid colon. - Non-bleeding external and internal hemorrhoids. - No specimens collected. Recommendation: - Discharge patient to home (ambulatory). - Repeat colonoscopy in 5 years for surveillance. Procedure Code(s): --- Professional --- 08492, Colonoscopy, flexible; diagnostic, including collection of specimen(s) by brushing or washing, when performed (separate procedure) Diagnosis Code(s): --- Professional --- Z86.010, Personal history of colonic polyps K64.2, Third degree hemorrhoids K57.30, Diverticulosis of large intestine without perforation or abscess without bleeding CPT copyright 2019 [employer]. All rights reserved. The codes documented in this report are preliminary and upon outpatient coder review may be revised to meet current compliance requirements. Matthew Abraham MD Matthew Abraham Jr, MD 04/03/2020 11:04:29 AM Electronically signed by Matthew Abraham Jr, MD Number of Addenda: 0 Note Initiated On: 04/03/2020 10:39 AM Estimated Blood Loss: Estimated blood loss: none.
[2020-04-03 11:25] VITALS: BP 106/69
== END 2020-04-03 11:45 | disposition home or self-care (01) ==
LOC: M OPP 09:34
PROVIDERS: ATTEND Surgery
DX: Z12.11 Encounter for screening for malignant neoplasm of colon (principal); Z86.010 Personal history of colon polyps; D12.6 Benign neoplasm of colon, unspecified; K64.3 Fourth degree hemorrhoids; K57.30 Diverticulosis of large intestine without perforation or abscess without bleeding; Z79.82 Long term (current) use of aspirin; Z79.899 Other long term (current) drug therapy

== ENCOUNTER → 2020-06-18 | Outpatient (REF) | payer MEDICARE ==
[~2020-06-18] MED LIST changes: -NS 1,000 ML IV ONE
[2020-06-18 18:08] LABS: APPEARANCE, URINE CLEAR (CLEAR); BACTERIA, URINE AUTO NEGATIVE (NEGATIVE); BILIRUBIN, URINE AUTO NEGATIVE (NEGATIVE); BLOOD, URINE BLOOD NEGATIVE (NEGATIVE); CALCIUM OXALATE CRYSTALS SMALL; COLOR, URINE YELLOW (YELLOW); GLUCOSE, URINE (UA) AUTO NEGATIVE (NEGATIVE); KETONE, URINE AUTO NEGATIVE (NEGATIVE); LEUKOCYTE ESTERASE, URINE AUTO NEGATIVE (NEGATIVE); MUCUS, URINE SMALL (NEGATIVE); NITRITE, URINE AUTO NEGATIVE (NEGATIVE); PROTEIN, URINE AUTO NEGATIVE (NEGATIVE); RBC, URINE AUTO 1 /HPF (0-3); SPECIFIC GRAVITY URINE AUTO 1.019 (1.002-1.035); SQUAMOUS EPITHELIAL CELL UR AU 0 /HPF (0-6); UROBILINOGEN, URINE AUTO 0.2 mg/dL (0.0-2.0); WBC, URINE AUTO 1 /HPF (0-3)
== END ==
LOC: M SMT 17:07
PROVIDERS: ATTEND Nurse Practitioner Family
DX: R35.0 Frequency of micturition (principal)
CPT/HCPCS: 51798; 81001; 87086; G0463

== ENCOUNTER 2021-03-31 10:19 | Observation (INO) | payer MEDICARE ==
[~2021-03-31] VITALS: Ht 177.8 cm; Wt 85.9 kg
[2021-03-31 14:09] LABS: BASO # 0.1 10^3/uL (0.0-0.2); BASO % 0.8 % (0.0-1.0); EOS # 0.3 10^3/uL (0.0-0.5); EOS % 3.9 % (0.0-3.0); HEMATOCRIT 47.1 % (42.0-52.0); HEMOGLOBIN 15.5 g/dl (13.5-17.5); LYMPH # 0.9 10^3/uL (1.5-5.0); LYMPH % 12.4 % (24.0-44.0); MEAN CORPUSCULAR HEMOGLOBIN 31.7 pg (27.0-33.0); MEAN CORPUSCULAR HGB CONC 32.9 g/dl (32.0-36.5); MEAN CORPUSCULAR VOLUME 96.3 fl (80.0-96.0); MONO # 0.6 10^3/uL (0.0-0.8); MONO % 8.8 % (2.0-8.0); NEUTROPHILS # 5.3 10^3/uL (1.5-8.5); NEUTROPHILS % 73.8 % (36.0-66.0); PLATELET COUNT, AUTOMATED 167 10^3/uL (150-450); RED BLOOD COUNT 4.89 10^6/uL (4.30-6.10); WHITE BLOOD COUNT 7.2 10^3/uL (4.0-10.0)
[2021-03-31 14:40] LABS: CK-MB VALUE MASS 4.7 NG/ML (<3.6); MB/CK RELATIVE INDEX 1.37 (< OR =4)
[2021-03-31 14:43] LABS: ALBUMIN 4.3 GM/DL (3.2-5.2); ALT/SGPT 38 U/L (12-78); BLOOD UREA NITROGEN 26 MG/DL (7-18); CARBON DIOXIDE LEVEL 25 MEQ/L (21-32); CHLORIDE LEVEL 109 MEQ/L (98-107); CREATININE FOR GFR 0.74 MG/DL (0.70-1.30); GLOMERULAR FILTRATION RATE > 60.0 (>42); GLUCOSE, FASTING 87 MG/DL (70-100); POTASSIUM SERUM 4.1 MEQ/L (3.5-5.1); SODIUM LEVEL 139 MEQ/L (136-145); TOTAL PROTEIN 7.4 GM/DL (6.4-8.2)
[2021-03-31] MEDS ORDERED: MOM 30ML SUSPENSION UDC PO PRN (17:30)
[2021-03-31] MEDS ORDERED: ACETAMINOPHEN TAB 650MG DOSE (2X325MG) PO PRN (17:30)
[2021-03-31] MEDS ORDERED: HOME MED LIST COMPLETE! XX SCH (17:35)
[2021-03-31 18:57] LABS: CHOLESTEROL RISK RATIO 2.377 (<5)
[2021-03-31 21:00] VITALS: BP 160/103
[2021-03-31] MEDS ORDERED: ATORVASTATIN 20 MG TAB PO SCH (21:00)
[2021-03-31] MEDS: HEPARIN SOD (PORCINE) 5000UNITS/ML 1ML VIAL/SYRINGE SC SCH (21:13)
[2021-04-01] VITALS: BP 133/80
[2021-04-01 04:00] VITALS: BP 128/72
[2021-04-01 05:06] LABS: HEMATOCRIT 41.2 % (42.0-52.0); HEMOGLOBIN 13.9 g/dl (13.5-17.5); MEAN CORPUSCULAR HEMOGLOBIN 32.3 pg (27.0-33.0); MEAN CORPUSCULAR HGB CONC 33.7 g/dl (32.0-36.5); MEAN CORPUSCULAR VOLUME 95.6 fl (80.0-96.0); PLATELET COUNT, AUTOMATED 152 10^3/uL (150-450); RED BLOOD COUNT 4.31 10^6/uL (4.30-6.10); WHITE BLOOD COUNT 4.3 10^3/uL (4.0-10.0)
[2021-04-01 05:31] LABS: BLOOD UREA NITROGEN 18 MG/DL (7-18); CALCIUM LEVEL 8.4 MG/DL (8.8-10.2); CARBON DIOXIDE LEVEL 26 MEQ/L (21-32); CHLORIDE LEVEL 111 MEQ/L (98-107); CREATININE FOR GFR 0.67 MG/DL (0.70-1.30); GLOMERULAR FILTRATION RATE > 60.0 (>42); GLUCOSE, FASTING 93 MG/DL (70-100); MAGNESIUM LEVEL 2.2 MG/DL (1.8-2.4); SODIUM LEVEL 141 MEQ/L (136-145)
[2021-04-01 08:00] VITALS: BP 151/85
[2021-04-01] MEDS ORDERED: ASPIRIN 81 MG CHEW TABLET PO SCH (09:00)
[2021-04-01] MEDS ORDERED: ATORVASTATIN 20 MG TAB PO SCH (09:00)
[2021-04-01] MEDS ORDERED: PREVNAR 13 VACCINE SYRINGE IM ONE (09:00)
[2021-04-01] MEDS: HEPARIN SOD (PORCINE) 5000UNITS/ML 1ML VIAL/SYRINGE SC SCH (09:01)
[2021-04-01 09:02] VITALS: BP 151/85
== END 2021-04-01 12:09 | disposition home or self-care (01) ==
LOC: M ED 10:19 → M ED INP 10:20 → ENRESERV 19:48 → M PCU 20:55
PROVIDERS: ADMIT Internal Medicine; ATTEND Internal Medicine
DX: S06.0X9A Concussion with loss of consciousness of unspecified duration, initial encounter (principal); S00.03XA Contusion of scalp, initial encounter; R22.0 Localized swelling, mass and lump, head; R51.9 Headache, unspecified; W01.10XA Fall on same level from slipping, tripping and stumbling with subsequent striking against unspecified object, initial encounter; Y92.096 Garden or yard of other non-institutional residence as the place of occurrence of the external cause; Y93.01 Activity, walking, marching and hiking; Y99.8 Other external cause status; G31.1 Senile degeneration of brain, not elsewhere classified; G93.89 Other specified disorders of brain; I51.9 Heart disease, unspecified; I34.0 Nonrheumatic mitral (valve) insufficiency; I36.1 Nonrheumatic tricuspid (valve) insufficiency; I27.20 Pulmonary hypertension, unspecified; I37.1 Nonrheumatic pulmonary valve insufficiency; Z86.73 Personal history of transient ischemic attack (TIA), and cerebral infarction without residual deficits; G47.33 Obstructive sleep apnea (adult) (pediatric); E78.5 Hyperlipidemia, unspecified; Z79.899 Other long term (current) drug therapy; Z79.82 Long term (current) use of aspirin
CPT/HCPCS: 36415; 70450; 70544; 70551; 71045; 72125; 80048; 80053; 80061; 81001; 82553; 83735; 84484; 85025; 85027; 87426; 90670; 93005; 93041; 93306; 93880; 96372; 97116; 97161; 99285; G0009; G0378; J1644

== ENCOUNTER → 2021-05-20 | Outpatient (REF) | payer MEDICARE ==
[2021-05-20 14:02] LABS: CRYSTALS, BODY FLUID NONE SEEN (NONE SEEN)
[2021-05-20 14:03] LABS: SOURCE, BODY FLUID CRYSTALS RT KNEE
[2021-05-20 14:12] LABS: SOURCE, BODY FLUID RT KNEE; SYNOVIAL FLUID COLOR ORANGE (COLORLESS)
[2021-05-20 14:37] LABS: SOURCE, BODY FLUID GLUCOSE RT KNEE
== END ==
LOC: M LAB REF 12:56
PROVIDERS: ATTEND Physician Assistant
DX: M25.461 Effusion, right knee (principal)

== ENCOUNTER → 2022-02-16 | Outpatient (REF) | payer MEDICARE ==
[2022-02-16 14:04] LABS: HEMATOCRIT 46.7 % (42.0-52.0); HEMOGLOBIN 15.1 g/dl (13.5-17.5); MEAN CORPUSCULAR HEMOGLOBIN 31.9 pg (27.0-33.0); MEAN CORPUSCULAR HGB CONC 32.3 g/dl (32.0-36.5); MEAN CORPUSCULAR VOLUME 98.5 fl (80.0-96.0); PLATELET COUNT, AUTOMATED 167 10^3/uL (150-450); RED BLOOD COUNT 4.74 10^6/uL (4.30-6.10); WHITE BLOOD COUNT 4.9 10^3/uL (4.0-10.0)
[2022-02-16 14:52] LABS: ALKALINE PHOSPHATASE 81 U/L (46-116); ALT/SGPT 32 U/L (7.0-40); AST/SGOT 23 U/L (<34); BILIRUBIN,TOTAL 0.8 MG/DL (0.3-1.2); BLOOD UREA NITROGEN 23 MG/DL (9-23); CALCIUM LEVEL 9.2 MG/DL (8.3-10.6); CARBON DIOXIDE LEVEL 26 MMOL/L (20-31); CHLORIDE LEVEL 107 MMOL/L (98-107); CHOLESTEROL LEVEL 131 MG/DL (<200); CHOLESTEROL RISK RATIO 2.33 (<5); CREATININE FOR GFR 0.81 MG/DL (0.70-1.30); GLOMERULAR FILTRATION RATE > 60.0 (>42); GLUCOSE, FASTING 62 MG/DL (74-106); LDL CHOLESTEROL 64.2 MG/DL (<100); NON-HDL-C 75 MG/DL; POTASSIUM SERUM 4.4 MMOL/L (3.5-5.1); SODIUM LEVEL 143 MMOL/L (136-145); TOTAL PROTEIN 6.7 G/DL (5.7-8.2); TRIGLYCERIDES LEVEL 54 MG/DL (<150)
== END ==
LOC: M SFHCADAM 08:46
PROVIDERS: ATTEND Physician Assistant
DX: E78.5 Hyperlipidemia, unspecified (principal); Q21.10 Atrial septal defect, unspecified; Z86.73 Personal history of transient ischemic attack (TIA), and cerebral infarction without residual deficits; Z12.5 Encounter for screening for malignant neoplasm of prostate
CPT/HCPCS: 80053; 80061; 85027; G0103

== ENCOUNTER 2022-04-29 08:43 | Inpatient (IN) | payer MEDICARE ==
[~2022-04-29] VITALS: Ht 177.8 cm; Wt 84.1 kg
[2022-04-29] MEDS ORDERED: ECOT81TA5 PO (08:53)
[2022-04-29 10:18] LABS: BASO # 0.1 10^3/uL (0.0-0.2); BASO % 1.2 % (0.0-1.0); EOS # 0.3 10^3/uL (0.0-0.5); EOS % 7.4 % (0.0-3.0); HEMATOCRIT 43.8 % (42.0-52.0); HEMOGLOBIN 14.8 g/dl (13.5-17.5); LYMPH # 0.7 10^3/uL (1.5-5.0); LYMPH % 17.7 % (24.0-44.0); MEAN CORPUSCULAR HEMOGLOBIN 32.7 pg (27.0-33.0); MEAN CORPUSCULAR HGB CONC 33.8 g/dl (32.0-36.5); MEAN CORPUSCULAR VOLUME 96.7 fl (80.0-96.0); MONO # 0.4 10^3/uL (0.0-0.8); MONO % 9.8 % (2.0-8.0); NEUTROPHILS # 2.6 10^3/uL (1.5-8.5); NEUTROPHILS % 63.7 % (36.0-66.0); PLATELET COUNT, AUTOMATED 164 10^3/uL (150-450); RED BLOOD COUNT 4.53 10^6/uL (4.30-6.10); WHITE BLOOD COUNT 4.1 10^3/uL (4.0-10.0)
[2022-04-29 10:52] LABS: CPK CREATINE PHOSPHOKINASE 214 U/L (46-171)
[2022-04-29 10:56] LABS: ALBUMIN 3.9 G/DL (3.2-5.2); ALKALINE PHOSPHATASE 73 U/L (46-116); ALT/SGPT 29 U/L (7.0-40); AST/SGOT 24 U/L (<34); BILIRUBIN,DIRECT 0.3 MG/DL (<0.4); BLOOD UREA NITROGEN 24 MG/DL (9-23); CALCIUM LEVEL 8.9 MG/DL (8.3-10.6); CARBON DIOXIDE LEVEL 29 MMOL/L (20-31); CHLORIDE LEVEL 108 MMOL/L (98-107); CK-MB VALUE MASS 2.5 NG/ML (<3.6); CREATININE FOR GFR 0.67 MG/DL (0.70-1.30); FREE T4 0.98 NG/DL (0.89-1.76); GLOMERULAR FILTRATION RATE > 60.0 (>42); GLUCOSE, FASTING 98 MG/DL (74-106); MB/CK RELATIVE INDEX 1.16 (< OR =4); POTASSIUM SERUM 4.4 MMOL/L (3.5-5.1); SODIUM LEVEL 140 MMOL/L (136-145); THYROID STIMULATING HORMONE 1.876 uIU/ML (0.55-4.78); TOTAL PROTEIN 6.5 G/DL (5.7-8.2)
[2022-04-29] MEDS ORDERED: ACETAMINOPHEN 500 MG TAB PO ONE (11:40)
[2022-04-29] MEDS ORDERED: NS 1,000 ML IV ONE ×2 (11:40→13:20)
[2022-04-29] MEDS ORDERED: ISOVUE-370 76% 100ML VIAL As Ordered ONE (11:43)
[2022-04-29 12:45] LABS: CK-MB VALUE MASS 1.8 NG/ML (<3.6)
[2022-04-29 12:46] LABS: MB/CK RELATIVE INDEX 1.09 (< OR =4)
[2022-04-29 14:36] LABS: RSV AMPLIFICATION NEGATIVE (NEGATIVE)
[2022-04-29] MEDS ORDERED: MULT-113 PO (14:40)
[2022-04-29] MEDS ORDERED: TAB-TAB3 (14:40)
[2022-04-29] MEDS ORDERED: CIDA500T2 PO (14:41)
[2022-04-29] MEDS ORDERED: GNP1000T11 PO (14:42)
[2022-04-29] MEDS ORDERED: HOME MED LIST COMPLETE! XX SCH (14:45)
[2022-04-29 16:30] VITALS: BP 130/70
[2022-04-29 21:03] VITALS: BP 124/82
[2022-04-30 05:30] LABS: HEMATOCRIT 40.3 % (42.0-52.0); HEMOGLOBIN 13.6 g/dl (13.5-17.5); MEAN CORPUSCULAR HGB CONC 33.7 g/dl (32.0-36.5); MEAN CORPUSCULAR VOLUME 97.8 fl (80.0-96.0); PLATELET COUNT, AUTOMATED 144 10^3/uL (150-450); RED BLOOD COUNT 4.12 10^6/uL (4.30-6.10); WHITE BLOOD COUNT 4.7 10^3/uL (4.0-10.0)
[2022-04-30 05:51] LABS: BLOOD UREA NITROGEN 21 MG/DL (9-23); CALCIUM LEVEL 8.3 MG/DL (8.3-10.6); CARBON DIOXIDE LEVEL 26 MMOL/L (20-31); CHLORIDE LEVEL 110 MMOL/L (98-107); GLOMERULAR FILTRATION RATE > 60.0 (>42); GLUCOSE, FASTING 94 MG/DL (74-106); POTASSIUM SERUM 4.3 MMOL/L (3.5-5.1); SODIUM LEVEL 142 MMOL/L (136-145)
[2022-04-30 06:00] VITALS: BP 150/84
[2022-04-30] MEDS ORDERED: HEPARIN SOD (PORCINE) 5000UNITS/ML 1ML VIAL/SYRINGE SC SCH (06:00)
[2022-04-30] MEDS ORDERED: ASPIRIN 81MG ENTERIC TABLET PO SCH (09:00)
[2022-04-30] MEDS ORDERED: PRAVASTATIN 20 MG TAB PO SCH (09:00)
[2022-04-30] MEDS ORDERED: AMLO25TA PO (11:25)
== END 2022-04-30 13:25 | disposition home or self-care (01) | DRG 309 ==
LOC: M ED 08:43 → M ED INP 14:11 → ENRESERV 17:09 → M MSPAV 18:24
PROVIDERS: ADMIT Internal Medicine; ATTEND Internal Medicine
PROC: B246ZZZ Ultrasonography of Right and Left Heart (ICD-10-PCS; principal; 2022-04-29)
DX: R00.1 Bradycardia, unspecified (principal); I50.30 Unspecified diastolic (congestive) heart failure; N40.0 Benign prostatic hyperplasia without lower urinary tract symptoms; G47.33 Obstructive sleep apnea (adult) (pediatric); R55 Syncope and collapse; E78.5 Hyperlipidemia, unspecified; I11.0 Hypertensive heart disease with heart failure; Z86.73 Personal history of transient ischemic attack (TIA), and cerebral infarction without residual deficits; Z79.82 Long term (current) use of aspirin; Z79.899 Other long term (current) drug therapy; Z20.822 Contact with and (suspected) exposure to COVID-19

== ENCOUNTER → 2022-06-10 | Outpatient (CLI) | payer MEDICARE ==
[~2022-06-10] MED LIST changes: +AMLO25TA PO; +CIDA500T2 PO; +ECOT81TA5 PO; +GNP1000T11 PO; +MULT-113 PO; +TAB-TAB3
== END ==
LOC: M CARPUL 10:55
PROVIDERS: ATTEND Physician Assistant
DX: Q21.10 Atrial septal defect, unspecified (principal); I37.1 Nonrheumatic pulmonary valve insufficiency; I34.81 Nonrheumatic mitral (valve) annulus calcification; I51.7 Cardiomegaly; I27.20 Pulmonary hypertension, unspecified

== ENCOUNTER → 2023-02-11 | Outpatient (REF) | payer MEDICARE ==
[2023-02-11 14:19] LABS: BASO # 0.1 10^3/uL (0.0-0.2); BASO % 1.1 % (0.0-1.0); EOS # 0.4 10^3/uL (0.0-0.5); EOS % 8.9 % (0.0-3.0); HEMATOCRIT 45.6 % (42.0-52.0); LYMPH # 0.8 10^3/uL (1.5-5.0); LYMPH % 18.3 % (24.0-44.0); MEAN CORPUSCULAR HEMOGLOBIN 32.9 pg (27.0-33.0); MEAN CORPUSCULAR HGB CONC 32.9 g/dl (32.0-36.5); MONO # 0.4 10^3/uL (0.0-0.8); MONO % 9.2 % (2.0-8.0); NEUTROPHILS # 2.9 10^3/uL (1.5-8.5); NEUTROPHILS % 62.3 % (36.0-66.0); PLATELET COUNT, AUTOMATED 161 10^3/uL (150-450); RED BLOOD COUNT 4.56 10^6/uL (4.30-6.10); WHITE BLOOD COUNT 4.6 10^3/uL (4.0-10.0)
[2023-02-11 14:24] LABS: PSA SCREENING 2.38 NG/ML (< 4.00)
[2023-02-11 14:25] LABS: URIC ACID 5.6 MG/DL (3.7-9.2)
[2023-02-11 14:26] LABS: ALBUMIN 3.9 G/DL (3.2-5.2); ALKALINE PHOSPHATASE 78 U/L (46-116); ALT/SGPT 27 U/L (7.0-40); AST/SGOT 19 U/L (<34); BILIRUBIN,TOTAL 0.8 MG/DL (0.3-1.2); BLOOD UREA NITROGEN 17 MG/DL (9-23); CALCIUM LEVEL 8.9 MG/DL (8.3-10.6); CARBON DIOXIDE LEVEL 30 MMOL/L (20-31); CHLORIDE LEVEL 109 MMOL/L (98-107); CHOLESTEROL LEVEL 138 MG/DL (<200); CHOLESTEROL RISK RATIO 2.23 (<5); CREATININE FOR GFR 0.75 MG/DL (0.70-1.30); GLOMERULAR FILTRATION RATE > 60.0 (>42); GLUCOSE, FASTING 90 MG/DL (74-106); HDL CHOLESTEROL 61.7 MG/DL (>40); LDL CHOLESTEROL 65.1 MG/DL (<100); NON-HDL-C 76.3 MG/DL; POTASSIUM SERUM 4.6 MMOL/L (3.5-5.1); SODIUM LEVEL 144 MMOL/L (136-145); TOTAL PROTEIN 6.6 G/DL (5.7-8.2); TRIGLYCERIDES LEVEL 56 MG/DL (<150)
[2023-02-11 14:52] LABS: MAU/CREAT RATIO 4.8 MCG/MG (0.0-30.0)
== END ==
LOC: M SFHCADAM 09:23
PROVIDERS: ATTEND Physician Assistant
DX: Z12.5 Encounter for screening for malignant neoplasm of prostate (principal); M10.9 Gout, unspecified; I10 Essential (primary) hypertension; E78.5 Hyperlipidemia, unspecified
CPT/HCPCS: 80053; 80061; 82043; 84550; 85025; G0103

== ENCOUNTER → 2023-08-02 | Outpatient (REF) | payer MEDICARE ==
[2023-08-02 14:13] LABS: FREE T4 1.11 NG/DL (0.89-1.76); THYROID STIMULATING HORMONE 2.481 uIU/ML (0.55-4.78)
[2023-08-02 14:17] LABS: HEMOGLOBIN A1c 5.1 % (4.0-6.0)
== END ==
LOC: M SFHCADAM 09:45
PROVIDERS: ATTEND Family Medicine
DX: N52.9 Male erectile dysfunction, unspecified (principal); Z79.899 Other long term (current) drug therapy

== ENCOUNTER → 2024-02-17 | Outpatient (REF) | payer MEDICARE ==
[2024-02-17 18:13] LABS: BASO # 0.1 10^3/uL (0.0-0.2); BASO % 0.9 % (0.0-1.0); EOS # 0.3 10^3/uL (0.0-0.5); EOS % 5.1 % (0.0-3.0); HEMATOCRIT 43.8 % (42.0-52.0); HEMOGLOBIN 14.6 g/dl (13.5-17.5); LYMPH # 0.7 10^3/uL (1.5-5.0); LYMPH % 13.5 % (24.0-44.0); MEAN CORPUSCULAR HEMOGLOBIN 32.5 pg (27.0-33.0); MEAN CORPUSCULAR HGB CONC 33.3 g/dl (32.0-36.5); MEAN CORPUSCULAR VOLUME 97.6 fl (80.0-96.0); MONO # 0.5 10^3/uL (0.0-0.8); MONO % 9.3 % (2.0-8.0); NEUTROPHILS # 3.9 10^3/uL (1.5-8.5); NEUTROPHILS % 70.8 % (36.0-66.0); PLATELET COUNT, AUTOMATED 174 10^3/uL (150-450); RED BLOOD COUNT 4.49 10^6/uL (4.30-6.10); WHITE BLOOD COUNT 5.5 10^3/uL (4.0-10.0)
[2024-02-17 18:21] LABS: ALBUMIN 3.9 G/DL (3.2-5.2); ALKALINE PHOSPHATASE 73 U/L (40-129); ALT/SGPT 26 U/L (7.0-40); AST/SGOT 20 U/L (<34); BILIRUBIN,TOTAL 0.8 MG/DL (0.3-1.2); BLOOD UREA NITROGEN 22 MG/DL (9-23); CALCIUM LEVEL 9.6 MG/DL (8.3-10.6); CARBON DIOXIDE LEVEL 27 MMOL/L (20-31); CHLORIDE LEVEL 106 MMOL/L (98-107); CHOLESTEROL LEVEL 138 MG/DL (<200); CHOLESTEROL RISK RATIO 2.25 (<5); CREATININE FOR GFR 0.79 MG/DL (0.70-1.30); FREE T4 1.19 NG/DL (0.89-1.76); GLOMERULAR FILTRATION RATE > 60.0 (>42); GLUCOSE, FASTING 90 MG/DL (74-106); HDL CHOLESTEROL 61.2 MG/DL (>40); NON-HDL-C 76.8 MG/DL; POTASSIUM SERUM 4.3 MMOL/L (3.5-5.1); SODIUM LEVEL 140 MMOL/L (136-145); THYROID STIMULATING HORMONE 2.531 uIU/ML (0.55-4.78); TOTAL 25(OH) VITAMIN D 51.4 NG/ML (20.0-100.0); TOTAL PROTEIN 6.9 G/DL (5.7-8.2); TRIGLYCERIDES LEVEL 69 MG/DL (<150)
== END ==
LOC: M SFHCADAM 11:19
DX: Z00.00 Encounter for general adult medical examination without abnormal findings (principal); Z13.21 Encounter for screening for nutritional disorder; Z79.899 Other long term (current) drug therapy

== ENCOUNTER 2024-02-19 12:19 | Emergency (ER) | payer MEDICARE ==
[~2024-02-19] VITALS: Ht 177.8 cm; Wt 79.5 kg
[2024-02-19 17:21] VITALS: BP 139/92; TEMP 97.5; O2SAT 95
== END 2024-02-19 17:22 | disposition home or self-care (01) ==
LOC: M ED 12:19
DX: K59.00 Constipation, unspecified (principal); I10 Essential (primary) hypertension; E78.5 Hyperlipidemia, unspecified; Z86.79 Personal history of other diseases of the circulatory system; Z79.82 Long term (current) use of aspirin; Z79.899 Other long term (current) drug therapy

== ENCOUNTER → 2024-02-21 | Outpatient (REF) | payer MEDICARE ==
[2024-02-21 17:50] LABS: APPEARANCE, URINE CLEAR (CLEAR); BACTERIA, URINE AUTO NEGATIVE (NEGATIVE); BILIRUBIN, URINE AUTO NEGATIVE (NEGATIVE); BLOOD, URINE BLOOD NEGATIVE (NEGATIVE); COLOR, URINE STRAW (YELLOW); GLUCOSE, URINE (UA) AUTO NEGATIVE (NEGATIVE); KETONE, URINE AUTO NEGATIVE (NEGATIVE); LEUKOCYTE ESTERASE, URINE AUTO NEGATIVE (NEGATIVE); NITRITE, URINE AUTO NEGATIVE (NEGATIVE); PROTEIN, URINE AUTO NEGATIVE (NEGATIVE); RBC, URINE AUTO 0 /HPF (0-3); SPECIFIC GRAVITY URINE AUTO 1.004 (1.002-1.035); SQUAMOUS EPITHELIAL CELL UR AU 0 /HPF (0-6); UROBILINOGEN, URINE AUTO 0.2 mg/dL (0.0-2.0); WBC, URINE AUTO 0 /HPF (0-3)
[2024-02-21 18:50] LABS: PSA SCREENING 3.28 NG/ML (< 4.00)
[2024-02-21 19:00] LABS: HEPATITIS B SURFACE ANTIBODY NEGATIVE (POSITIVE)
[2024-02-21 19:11] LABS: HEPATITIS B SURFACE ANTIGEN NEGATIVE (NEGATIVE)
[2024-02-21 19:24] LABS: HIV 1&2 SCREEN NEGATIVE (NEGATIVE)
[2024-02-21 19:32] LABS: HEPATITIS C VIRUS ABY INDEX < 0.02 INDEX (<0.8)
[2024-02-21 19:58] LABS: Trichomonas vaginalis (AMP) NOT DETECTED (NEGATIVE)
[2024-02-21 20:22] LABS: GC DNA AMPLIFICATION NEGATIVE (NEGATIVE)
== END ==
LOC: M SFHCADAM 12:53
PROVIDERS: ATTEND Physician Assistant
DX: Z72.51 High risk heterosexual behavior (principal); Z12.5 Encounter for screening for malignant neoplasm of prostate; N40.1 Benign prostatic hyperplasia with lower urinary tract symptoms; N39.498 Other specified urinary incontinence; Z11.59 Encounter for screening for other viral diseases; Z11.3 Encounter for screening for infections with a predominantly sexual mode of transmission; Z72.89 Other problems related to lifestyle
CPT/HCPCS: 81001; 86704; 86706; 86780; 86803; 87086; 87340; 87389; 87661; 87810; 87850; G0103

== ENCOUNTER 2024-10-01 11:11 | Emergency (ER) | payer MEDICARE ==
[~2024-10-01] VITALS: Ht 177.8 cm; Wt 87.1 kg
[~2024-10-01 11:11] MED LIST changes: -PRAV40TA2 PO; +PRAV40TA85 PO
[2024-10-01 13:00] VITALS: BP 133/76
[2024-10-01 13:11] VITALS: O2SAT 95
[2024-10-01 13:25] VITALS: TEMP 97.3
== END 2024-10-01 13:32 | disposition home or self-care (01) ==
LOC: M ED 11:11
DX: M66.822 Spontaneous rupture of other tendons, left upper arm (principal); Z87.442 Personal history of urinary calculi; Z86.73 Personal history of transient ischemic attack (TIA), and cerebral infarction without residual deficits; E78.00 Pure hypercholesterolemia, unspecified; G47.30 Sleep apnea, unspecified; N40.0 Benign prostatic hyperplasia without lower urinary tract symptoms; Z79.82 Long term (current) use of aspirin; Z79.899 Other long term (current) drug therapy

== ENCOUNTER → 2024-12-04 | Outpatient (REF) | payer MEDICARE ==
[~2024-12-04] MED LIST changes: +TAMS-18 PO
[2024-12-04 18:36] LABS: CALCIUM LEVEL 9.2 MG/DL (8.3-10.6); CARBON DIOXIDE LEVEL 28.0 MMOL/L (20-31); CHLORIDE LEVEL 110.0 MMOL/L (98-107); CREATININE FOR GFR 0.97 MG/DL (0.70-1.30); GLOMERULAR FILTRATION RATE 81.4 (>42); MAGNESIUM LEVEL 2.1 MG/DL (1.8-2.4); POTASSIUM SERUM 4.8 MMOL/L (3.5-5.1); SODIUM LEVEL 146.0 MMOL/L (136-145)
[2024-12-04 18:38] LABS: PLATELET COUNT, AUTOMATED 165 10^3/uL (150-450)
== END ==
LOC: M SFHCADAM 13:54
PROVIDERS: ATTEND Physician Assistant
DX: Z01.818 Encounter for other preprocedural examination (principal); G47.33 Obstructive sleep apnea (adult) (pediatric); K40.90 Unilateral inguinal hernia, without obstruction or gangrene, not specified as recurrent; Z86.73 Personal history of transient ischemic attack (TIA), and cerebral infarction without residual deficits

== ENCOUNTER 2024-12-11 06:08 | Day surgery (SDC) | payer MEDICARE ==
[~2024-12-11] VITALS: Ht 177.8 cm; Wt 81.2 kg
[2024-12-11] MEDS ORDERED: LR 1,000 ML IV SCH (06:25)
[2024-12-11] MEDS ORDERED: ROCURONIUM BROMIDE 50MG/5ML VIAL As Ordered ONE (07:11)
[2024-12-11] MEDS ORDERED: SUGAMMADEX SODIUM 200 MG/2 ML VIAL As Ordered ONE (07:11)
[2024-12-11] MEDS ORDERED: ACETAMINOPHEN 1000MG/100ML IV BAG As Ordered ONE (07:11)
[2024-12-11] MEDS ORDERED: ONDANSETRON 4MG/2ML VIAL As Ordered ONE (07:11)
[2024-12-11] MEDS ORDERED: LIDOCAINE 2% 100 MG/5 ML SDV (FOR ANES.) As Ordered ONE (07:11)
[2024-12-11] MEDS ORDERED: MIDAZOLAM INJ 2 MG/2 ML VIAL As Ordered ONE (07:11)
[2024-12-11] MEDS ORDERED: KETOROLAC 30 MG/ML 1 ML VIAL As Ordered ONE (07:11)
[2024-12-11] MEDS ORDERED: dexAMETHasone 4 MG/ML 1 ML VIAL As Ordered ONE (07:11)
[2024-12-11] MEDS ORDERED: GLYCOPYRROLATE INJ 0.2 MG/ML 2 ML VIAL As Ordered ONE (07:40)
[2024-12-11] MEDS: ceFAZolin SOD 2 GM IV ONCE IV ONE (08:02)
[2024-12-11] MEDS ORDERED: MORPHINE 4 MG/ML 1 ML VIAL IV PRN (09:15)
[2024-12-11] MEDS ORDERED: HYDROMORPHONE HCL 0.5 MG/0.5 ML SYRINGE IV PRN (09:15)
[2024-12-11] MEDS ORDERED: traMADol 50 MG TAB PO PRN (09:25)
[2024-12-11] MEDS ORDERED: NS (Normal Saline) 0.9% 1,000 ML IV SCH (09:25)
[2024-12-11 10:25] VITALS: BP 149/80; TEMP 97.4; O2SAT 98
[2024-12-11] MEDS ORDERED: KETOROLAC 30 MG/ML 1 ML VIAL IV SCH (13:00)
== END 2024-12-11 11:00 | disposition home or self-care (01) ==
LOC: M SDC 06:08
PROVIDERS: ATTEND Surgery
DX: K40.90 Unilateral inguinal hernia, without obstruction or gangrene, not specified as recurrent (principal); N40.0 Benign prostatic hyperplasia without lower urinary tract symptoms; Q21.12 Patent foramen ovale; I69.998 Other sequelae following unspecified cerebrovascular disease; H53.8 Other visual disturbances; G47.33 Obstructive sleep apnea (adult) (pediatric); Z79.899 Other long term (current) drug therapy; Z79.82 Long term (current) use of aspirin
CPT/HCPCS: 49650; C1781; J0131; J0665; J0688; J1100; J1596; J1885; J2250; J2405; J3010